=== PATIENT | male | born 1975 | race Two or more races ===

== ENCOUNTER → 2023-05-13 | Outpatient (CLI) | payer BC ==
[2023-05-13 07:24] LABS: Anion Gap 6 (5-15); Carbon Dioxide 28 mmol/L (20-30); Chloride 108 mmol/L (98-107); Potassium 4.4 mmol/L (3.5-5.1); Sodium 142 mmol/L (136-145)
[2023-05-13 07:25] LABS: Calcium 9.7 mg/dL (8.5-10.1)
[2023-05-13 07:29] LABS: Glucose 91 mg/dL (74-106)
[2023-05-13 07:30] LABS: BUN/Creatinine Ratio 9.3 (10.0-20.0); Blood Urea Nitrogen 10 mg/dL (9-23); LDL Cholesterol 117 mg/dL (< 100); Triglycerides 145 mg/dL (< 150)
[2023-05-13 07:32] LABS: Cholesterol 158 mg/dL (< 200); HDL Cholesterol 34 mg/dL (40-59)
== END | disposition home or self-care (01) ==
LOC: LAB 06:19
PROVIDERS: ATTEND Internal Medicine
DX: E11.65 Type 2 diabetes mellitus with hyperglycemia (principal)
CPT/HCPCS: 36415; 80048; 80061; 83036

== ENCOUNTER → 2023-08-22 | Outpatient (CLI) | payer BC ==
[2023-08-22 07:34] LABS: Anion Gap 6 (5-15); Calcium 9.7 mg/dL (8.5-10.1); Carbon Dioxide 28 mmol/L (20-30); Chloride 108 mmol/L (98-107); Potassium 4.1 mmol/L (3.5-5.1); Sodium 142 mmol/L (136-145)
[2023-08-22 07:40] LABS: BUN/Creatinine Ratio 11.3 (10.0-20.0); Blood Urea Nitrogen 11 mg/dL (9-23); Glucose 101 mg/dL (74-106); Triglycerides 113 mg/dL (< 150)
[2023-08-22 07:41] LABS: LDL Cholesterol 106 mg/dL (< 100)
[2023-08-22 07:42] LABS: Cholesterol 150 mg/dL (< 200); HDL Cholesterol 32 mg/dL (40-59)
[2023-08-22 08:08] LABS: Creatinine, Urine 147.92 mg/dL (30.0-125.0)
== END | disposition home or self-care (01) ==
LOC: LAB 06:16
PROVIDERS: ATTEND Internal Medicine
DX: E11.69 Type 2 diabetes mellitus with other specified complication (principal); E78.5 Hyperlipidemia, unspecified
CPT/HCPCS: 36415; 80048; 80061; 82043; 82570; 83036

== ENCOUNTER → 2024-02-06 | Outpatient (CLI) | payer BC ==
[2024-02-06 07:37] LABS: Alanine Aminotransferase 95 U/L (7-40); Albumin 4.5 g/dL (3.2-4.8); Alkaline Phosphatase 42 U/L (46-116); Carbon Dioxide 26 mmol/L (20-31); Chloride 108 mmol/L (98-107); Glucose 97 mg/dL (74-106); LDL Cholesterol 118 mg/dL (< 100); Potassium 4.9 mmol/L (3.5-5.1); Triglycerides 134 mg/dL (< 150)
[2024-02-06 07:38] LABS: Anion Gap 8 (5-15); Aspartate Aminotransferase 68 U/L (13-40); BUN/Creatinine Ratio 7.9 (10.0-20.0); Bilirubin, Total 0.5 mg/dL (0.2-1.0); Blood Urea Nitrogen 9 mg/dL (9-23); Cholesterol 166 mg/dL (< 200); Creatine Kinase IFCC 236 U/L (46-171); HDL Cholesterol 37 mg/dL (40-59); Sodium 142 mmol/L (136-145); Total Protein 7.6 g/dL (5.7-8.2)
== END | disposition home or self-care (01) ==
LOC: LAB 06:12
PROVIDERS: ATTEND Internal Medicine
DX: E11.69 Type 2 diabetes mellitus with other specified complication (principal); E78.5 Hyperlipidemia, unspecified
CPT/HCPCS: 36415; 80053; 80061; 82550; 83036

== ENCOUNTER → 2024-06-25 | Outpatient (CLI) | payer BC ==
[2024-06-25 08:14] LABS: Alanine Aminotransferase 43 U/L (7-40); Alkaline Phosphatase 33 U/L (46-116); Anion Gap 11 (5-15); Aspartate Aminotransferase 30 U/L (13-40); BUN/Creatinine Ratio 14.7 (10.0-20.0); Bilirubin, Total 0.6 mg/dL (0.2-1.0); Blood Urea Nitrogen 17 mg/dL (9-23); Calcium 10.2 mg/dL (8.7-10.4); Carbon Dioxide 27 mmol/L (20-31); Chloride 104 mmol/L (98-107); Cholesterol 147 mg/dL (< 200); Glucose 98 mg/dL (74-106); Potassium 4.2 mmol/L (3.5-5.1); Sodium 142 mmol/L (136-145); Total Protein 8.1 g/dL (5.7-8.2); Triglycerides 119 mg/dL (< 150)
[2024-06-25 08:15] LABS: Creatine Kinase IFCC 230 U/L (46-171); HDL Cholesterol 36 mg/dL (40-59); LDL Cholesterol 101 mg/dL (< 100)
== END | disposition home or self-care (01) ==
LOC: LAB 06:34
PROVIDERS: ATTEND Internal Medicine
DX: E11.69 Type 2 diabetes mellitus with other specified complication (principal); E78.5 Hyperlipidemia, unspecified
CPT/HCPCS: 36415; 80053; 80061; 82550; 83036; 84436; 84443